=== PATIENT | female | born 1990 | race African-American/Black ===

== ENCOUNTER → 2016-09-27 | Outpatient (CLI) | payer OTHER ==
[2014-09-20 14:00] VITALS: BP 116/65
--- NOTE | 2016-09-27 16:01 | RAD ---
Indication noticed IUD string missing. A single KUB was obtained. No abnormality is seen. The gas pattern is normal. No IUD is seen.
== END | disposition home or self-care (01) ==
LOC: DXRAD 15:41
PROVIDERS: ATTEND Obstetrics & Gynecology
DX: T83.32XA Displacement of intrauterine contraceptive device, initial encounter (principal); X58.XXXA Exposure to other specified factors, initial encounter
CPT/HCPCS: 74000